=== PATIENT | female | born 1985 | race American Indian/Alaskan Native ===

== ENCOUNTER 2022-03-25 01:05 | Inpatient (IN) | payer MEDICAID ==
[~2022-03-25 01:05] MED LIST: BACLOFEN 20MG T20 MG PO; IBUPROFEN800 MG PO; MEDROL 4MG DOSEP4 MG PO; NORCO 5-325 TA1 EACH PO
[2022-03-25 02:21] LABS: HCT 36.8 % (37.0-47.0); HGB 12.3 g/dl (12.5-16.0); MCHC 33.4 g/dL (32.0-36.0); MCV 86.8 fL (78.0-100.0); MPV 9.6 fL (6.0-9.5); RBC 4.24 M/uL (4.20-5.40); RDW 16.5 % (11.5-14.0); WBC 9.9 K/uL (4.0-10.5)
[2022-03-25 02:23] LABS: BILIRUBIN NEGATIVE (NEGATIVE); BLOOD TRACE-INTACT Ery/uL (NEGATIVE); CLARITY CLEAR (CLEAR); COLOR YELLOW (YELLOW); GLUCOSE (U) NORMAL (NORMAL); LEUKOCYTES NEGATIVE Leu/uL (NEGATIVE); NITRITE NEGATIVE (NEGATIVE); PROTEIN NEGATIVE (NEGATIVE); SPECIFIC GRAVITY 1.025 (1.001-1.030)
[2022-03-25 02:37] LABS: ECSTASY (MDMA) NEGATIVE (NEGATIVE); MARIJUANA (THC) NEGATIVE (NEGATIVE); METHADONE NEGATIVE (NEGATIVE); OPIATES NEGATIVE (NEGATIVE)
[2022-03-25 02:38] LABS: AMPHETAMINES NEGATIVE (NEGATIVE); BARBITURATES NEGATIVE (NEGATIVE); OXYCODONE NEGATIVE (NEGATIVE)
[2022-03-25 02:44] LABS: BACTERIA TRACE; URINARY WBC RARE
[2022-03-25 13:47] LABS: HCT 37.8 % (37.0-47.0); HGB 12.8 g/dl (12.5-16.0); MCH 29.6 pg (25.0-31.0); MCHC 33.9 g/dL (32.0-36.0); MCV 87.3 fL (78.0-100.0); MPV 9.5 fL (6.0-9.5); RBC 4.33 M/uL (4.20-5.40); RDW 16.4 % (11.5-14.0); WBC 16.5 K/uL (4.0-10.5)
[2022-03-25 14:08] LABS: INR 1.05 (0.9-1.2); PROTHROMBIN TIME 13.4 SECONDS (11.9-13.9); PTT 25.4 SECONDS (24.9-34.6)
[2022-03-25 16:51] LABS: HCT 35.3 % (37.0-47.0); MCH 29.8 pg (25.0-31.0); MCV 87.6 fL (78.0-100.0); MPV 9.3 fL (6.0-9.5); RBC 4.03 M/uL (4.20-5.40); RDW 16.5 % (11.5-14.0); WBC 14.1 K/uL (4.0-10.5)
[2022-03-25 17:02] LABS: INR 1.04 (0.9-1.2); PROTHROMBIN TIME 13.3 SECONDS (11.9-13.9); PTT 26.2 SECONDS (24.9-34.6)
[2022-03-26 07:19] LABS: HGB 9.7 g/dl (12.5-16.0); MCH 29.9 pg (25.0-31.0); MCHC 33.4 g/dL (32.0-36.0); MCV 89.5 fL (78.0-100.0); MPV 9.3 fL (6.0-9.5); RBC 3.24 M/uL (4.20-5.40); RDW 16.8 % (11.5-14.0); WBC 11.8 K/uL (4.0-10.5)
[2022-03-26 07:31] LABS: INR 1.04 (0.9-1.2); PROTHROMBIN TIME 13.3 SECONDS (11.9-13.9)
== END 2022-03-27 11:38 | disposition home or self-care (01) | DRG 806 ==
LOC: FOB 01:05
PROVIDERS: Specialist; ADMIT Obstetrics & Gynecology
PROC: 10E0XZZ Delivery of Products of Conception, External Approach (ICD-10-PCS; principal; 2022-03-25)
PROC: 10H07YZ Insertion of Other Device into Products of Conception, Via Natural or Artificial Opening (ICD-10-PCS; 2022-03-25)
PROC: 4A1HXCZ Monitoring of Products of Conception, Cardiac Rate, External Approach (ICD-10-PCS; 2022-03-25)
PROC: 3E033VJ Introduction of Other Hormone into Peripheral Vein, Percutaneous Approach (ICD-10-PCS; 2022-03-25)
DX: O41.03X0 Oligohydramnios, third trimester, not applicable or unspecified (principal); D62 Acute posthemorrhagic anemia; Z37.0 Single live birth; O72.1 Other immediate postpartum hemorrhage; Z3A.39 39 weeks gestation of pregnancy; Z20.822 Contact with and (suspected) exposure to COVID-19; O99.824 Streptococcus B carrier state complicating childbirth; O90.81 Anemia of the puerperium; O34.211 Maternal care for low transverse scar from previous cesarean delivery; O76 Abnormality in fetal heart rate and rhythm complicating labor and delivery
CPT/HCPCS: 36415; 80305; 81001; 85384; 85610; 85730; 86850; 86900; 86901; J0595; J1200; J2210; J2916; J7120; U0002